=== PATIENT | female | born 1995 | race Caucasian/White ===

== ENCOUNTER 2021-02-22 12:12 | Emergency (ER) | payer MEDICAID ==
--- NOTE | 2021-02-22 12:53 | NUR ---
PT. WAS ENTERING THE ER WITH BOYFRIEND... BOYFRIEND IS NOT VACINATED AND WAS TOLD BY THE SCREENER THAT WE WOULD TREAT THE PT. BUT UNFORTUNATELY HE COULD NOT ENTER THE HOSPITAL WITH HER.. HE STARTED CUSSING AT HER AND THREW HIS MASK AT HER AND SAID " IF MY BABY DIES IT IS ALL YOUR FAULT" AND THEY STORMED OUT.
== END 2021-02-22 12:59 | disposition left against medical advice (07) ==
LOC: ER 12:12
DX: O20.9 Hemorrhage in early pregnancy, unspecified (principal); Z3A.01 Less than 8 weeks gestation of pregnancy